=== PATIENT | female | born 1930 | race African-American/Black ===

== ENCOUNTER 2017-01-18 07:57 | Inpatient (IN) | payer MEDICARE, OTHER, MEDICAID ==
[~2017-01-18] VITALS: Ht 175.3 cm; Wt 100.0 kg
[2017-01-18 08:56] LABS: ALBUMIN 3.7 g/dL (3.4-4.8); BILIRUBIN - TOTAL 1.1 mg/dL (0.1-1.0); CREATININE 1.4 mg/dL (0.5-1.0); GLOBULIN (CALCULATION) 4.2 g/dL (2.2-4.2); POTASSIUM 4.3 mmol/L (3.5-5.1); TOTAL PROTEIN 7.9 g/dL (6.4-8.3)
[2017-01-18 08:58] LABS: BASOPHIL 0.3 % (0-2); EOSINOPHIL 2.6 % (0-7); HCT 44.4 % (37.0-47.0); HGB 14.5 g/dl (12.5-16.0); LYMPHOCYTE 15.2 % (15-48); MCH 29.7 pg (25.0-31.0); MCHC 32.7 g/dL (32.0-36.0); MONOCYTE 7.2 % (0-12); NEUTROPHIL 74.7 % (41-80); PLT 133 K/uL (150-400); RBC 4.88 M/uL (4.20-5.40); RDW 13.7 % (11.5-14.0); WBC 6.5 K/uL (4.0-10.5)
[2017-01-18 09:00] LABS: TROPONIN T < 0.010 ng/mL
[2017-01-18 09:01] LABS: PRO-BNP 2869 pg/mL (0-450)
[2017-01-18 09:02] LABS: INR 1.16 (0.9-1.2); PROTHROMBIN TIME 14.4 SECONDS (11.7-14.0); PTT 32.5 SECONDS (23.2-31.4)
[2017-01-18 09:50] LABS: BILIRUBIN NEGATIVE (NEGATIVE); BLOOD 2+ Ery/uL (NEGATIVE); CLARITY CLOUDY (CLEAR); COLOR AMBER (YELLOW); GLUCOSE (U) NORMAL (NORMAL); KETONE (U) NEGATIVE (NEGATIVE); LEUKOCYTES 3+ Leu/uL (NEGATIVE); NITRITE POSITIVE (NEGATIVE); PROTEIN 1+ mg/dL (NEGATIVE); UROBILINOGEN >=8.0 mg/dL (0.2-1.0)
[2017-01-18 09:56] LABS: BACTERIA 3+; URINARY WBC TNTC
[2017-01-19 04:07] LABS: BASOPHIL 0 % (0-2); EOSINOPHIL 0.6 % (0-7); HCT 42.4 % (37.0-47.0); HGB 14.1 g/dl (12.5-16.0); LYMPHOCYTE 11.1 % (15-48); MCH 29.6 pg (25.0-31.0); MCHC 33.3 g/dL (32.0-36.0); MCV 89.1 fL (78.0-100.0); MONOCYTE 5.6 % (0-12); MPV 11.1 fL (6.0-9.5); NEUTROPHIL 82.7 % (41-80); PLT 148 K/uL (150-400); RBC 4.76 M/uL (4.20-5.40); RDW 13.8 % (11.5-14.0); WBC 4.9 K/uL (4.0-10.5)
[2017-01-19 07:16] LABS: CREATININE 1.5 mg/dL (0.5-1.0)
[2017-01-20 03:59] LABS: HGB 12.9 g/dl (12.5-16.0); MCH 29.1 pg (25.0-31.0); MCHC 32.3 g/dL (32.0-36.0); MCV 90.1 fL (78.0-100.0); MPV 10.2 fL (6.0-9.5); RBC 4.44 M/uL (4.20-5.40); RDW 13.5 % (11.5-14.0); WBC 3.8 K/uL (4.0-10.5)
[2017-01-20 04:26] LABS: CREATININE 1.6 mg/dL (0.5-1.0); POTASSIUM 3.9 mmol/L (3.5-5.1)
[2017-01-21 04:39] LABS: HCT 39.9 % (37.0-47.0); MCH 29.1 pg (25.0-31.0); MCHC 32.6 g/dL (32.0-36.0); MCV 89.5 fL (78.0-100.0); MPV 10.1 fL (6.0-9.5); RBC 4.46 M/uL (4.20-5.40); RDW 13.4 % (11.5-14.0); WBC 4.1 K/uL (4.0-10.5)
[2017-01-21 04:53] LABS: CREATININE 1.2 mg/dL (0.5-1.0)
[2017-01-22 03:29] LABS: HCT 39.3 % (37.0-47.0); HGB 12.9 g/dl (12.5-16.0); MCH 29.3 pg (25.0-31.0); MCHC 32.8 g/dL (32.0-36.0); MCV 89.3 fL (78.0-100.0); MPV 9.9 fL (6.0-9.5); RBC 4.4 M/uL (4.20-5.40); RDW 13.3 % (11.5-14.0); WBC 4.7 K/uL (4.0-10.5)
[2017-01-22 03:49] LABS: CREATININE 1.2 mg/dL (0.5-1.0); POTASSIUM 4.1 mmol/L (3.5-5.1)
[2017-01-23 03:29] LABS: HCT 38.8 % (37.0-47.0); HGB 12.7 g/dl (12.5-16.0); MCH 29.4 pg (25.0-31.0); MCHC 32.7 g/dL (32.0-36.0); MCV 89.8 fL (78.0-100.0); RBC 4.32 M/uL (4.20-5.40); RDW 13.3 % (11.5-14.0); WBC 4.1 K/uL (4.0-10.5)
[2017-01-23 03:45] LABS: CREATININE 1.2 mg/dL (0.5-1.0); POTASSIUM 3.4 mmol/L (3.5-5.1)
[2017-01-24 05:25] LABS: HGB 13.5 g/dl (12.5-16.0); MCH 28.9 pg (25.0-31.0); MCHC 32.1 g/dL (32.0-36.0); MCV 89.9 fL (78.0-100.0); MPV 9.8 fL (6.0-9.5); RBC 4.67 M/uL (4.20-5.40); RDW 13.5 % (11.5-14.0)
[2017-01-24 05:26] LABS: WBC 7.2 K/uL (4.0-10.5)
[2017-01-24 05:40] LABS: CREATININE 1.1 mg/dL (0.5-1.0); POTASSIUM 3.7 mmol/L (3.5-5.1)
[2017-02-21] MEDS ORDERED: LOVAZA1 GM PO (13:51)
[2017-02-21] MEDS ORDERED: NEURONTIN400 MG PO (13:51)
[2017-02-21] MEDS ORDERED: VANCOCIN HCL250 MG PO (13:51)
[2017-02-21] MEDS ORDERED: DEMADEX10 MG PO (13:52)
[2017-02-21] MEDS ORDERED: COZAAR100 MG PO (13:52)
[2017-02-21] MEDS ORDERED: ZOCOR20 MG PO (13:52)
[2017-02-21] MEDS ORDERED: PROTONIX40 MG PO (13:52)
[2017-02-21] MEDS ORDERED: ASPIRIN CHEWABL81 MG PO (13:53)
[2017-02-21] MEDS ORDERED: VITAMIN D2000 UNI1 PO (13:53)
[2017-02-21] MEDS ORDERED: FLEXERIL10 MG PO (13:53)
[2017-02-21] MEDS ORDERED: NORCO 7.5-3251 EACH PO (13:53)
[2017-02-21] MEDS ORDERED: COREG12.5 MG PO (13:54)
[2017-02-21] MEDS ORDERED: OXYGEN (13:54)
== END 2017-01-24 14:20 | disposition other institution (70) | DRG 689 ==
LOC: FER 07:57 → FMS 11:15
PROVIDERS: Emergency Medicine; Internal Medicine; Internal Medicine Adolescent Medicine; ADMIT Internal Medicine Nephrology
DX: N30.00 Acute cystitis without hematuria (principal); J18.9 Pneumonia, unspecified organism; N17.9 Acute kidney failure, unspecified; I13.0 Hypertensive heart and chronic kidney disease with heart failure and stage 1 through stage 4 chronic kidney disease, or unspecified chronic kidney disease; J96.10 Chronic respiratory failure, unspecified whether with hypoxia or hypercapnia; I50.32 Chronic diastolic (congestive) heart failure; J44.0 Chronic obstructive pulmonary disease with (acute) lower respiratory infection; Z99.81 Dependence on supplemental oxygen; I10 Essential (primary) hypertension; E66.01 Morbid (severe) obesity due to excess calories; G47.33 Obstructive sleep apnea (adult) (pediatric); J44.9 Chronic obstructive pulmonary disease, unspecified; N39.0 Urinary tract infection, site not specified; B96.20 Unspecified Escherichia coli [E. coli] as the cause of diseases classified elsewhere; Z79.82 Long term (current) use of aspirin; Z68.34 Body mass index [BMI] 34.0-34.9, adult; G89.29 Other chronic pain; I35.1 Nonrheumatic aortic (valve) insufficiency; Z88.5 Allergy status to narcotic agent; Z88.8 Allergy status to other drugs, medicaments and biological substances; Z83.3 Family history of diabetes mellitus; Z80.9 Family history of malignant neoplasm, unspecified; R31.9 Hematuria, unspecified; N18.3 Chronic kidney disease, stage 3 (moderate)
CPT/HCPCS: 36415; 71010; 76705; 80048; 80053; 81001; 83605; 83880; 84484; 85025; 85610; 85730; 87040; 87045; 87046; 87076; 87088; 87186; 87205; 87328; 87337; 87493; 93005; 94010; 94640; 97110; 97116; 97162; 97166; 97530; 97530-GP; G0378; J0692; J1940; J1956; J2020; J2405; J2543